=== PATIENT | male | born 1980 | race Caucasian/White ===

== ENCOUNTER 2018-08-22 18:27 | Emergency (ER) | payer MEDICAID, OTHER ==
[~2018-08-22] VITALS: Ht 188 cm; Wt 82.0 kg
[2018-08-22 18:31] VITALS: BP 144/97
== END 2018-08-22 20:37 | disposition home or self-care (01) ==
LOC: ER 18:31
DX: S61.210A Laceration without foreign body of right index finger without damage to nail, initial encounter (principal); I10 Essential (primary) hypertension; Z98.890 Other specified postprocedural states; W45.8XXA Other foreign body or object entering through skin, initial encounter; Y93.89 Activity, other specified; Y92.89 Other specified places as the place of occurrence of the external cause; Y99.8 Other external cause status
CPT/HCPCS: 12001; 99283

== ENCOUNTER 2024-03-02 15:55 | Emergency (ER) | payer BC, OTHER ==
[~2024-03-02] VITALS: Ht 182.9 cm; Wt 80.5 kg
[2024-03-02 16:11] VITALS: BP 222/132; PULSE 108; RESP 18; O2SAT 100
== END 2024-03-02 18:45 | disposition left against medical advice (07) ==
LOC: ER 15:55
DX: I10 Essential (primary) hypertension (principal); F41.9 Anxiety disorder, unspecified; R11.0 Nausea; Z53.21 Procedure and treatment not carried out due to patient leaving prior to being seen by health care provider